=== PATIENT | female | born 1965 | race Caucasian/White ===

== ENCOUNTER 2017-05-21 13:27 | Emergency (ER) | payer OTHER ==
[2017-05-21 16:51] LABS: URINE BLOOD (Dip) POC Negative (NEGATIVE); URINE GLUCOSE (Dip) POC Negative (NEGATIVE); URINE KETONES (Dip) POC Negative (NEGATIVE); URINE LEUKOCYTE EST (Dip) POC Negative (NEGATIVE); URINE NITRITE (Dip) POC Negative (NEGATIVE); URINE TOTAL PROTEIN POC Negative (NEGATIVE)
[2017-05-21 16:51] LABS: URINE PH (Dip) POC 5.5 (5.0-8.5)
[2017-05-21 17:15] LABS: ADD MAN DIFF? NO
[2017-05-21 17:17] LABS: ABNORMAL IP MESSAGE 1; BASOPHILS % 0.4 % (0.0-2.0); EOSINOPHILS # 0.3 10^3/ul (0.0-0.5); EOSINOPHILS % 4.4 % (0.0-7.0); HEMATOCRIT 30.8 % (37.0-47.0); HEMOGLOBIN 8.9 g/dl (12.0-16.0); LYMPHOCYTES # 1.6 10^3/ul (0.8-2.9); LYMPHOCYTES % 21.8 % (15.0-51.0); MEAN CORPUSCULAR HEMOGLOBIN 21.5 pg (29.0-33.0); MEAN CORPUSCULAR HGB CONC 28.9 g/dl (32.0-37.0); MEAN CORPUSCULAR VOLUME 74.6 fl (82.0-101.0); MEAN PLATELET VOLUME 9.4 fl (7.4-10.4); MONOCYTE # 0.7 10^3/ul (0.3-0.9); MONOCYTES % 9.3 % (0.0-11.0); NEUTROPHIL # 4.6 10^3/ul (1.6-7.5); NEUTROPHILS % 63.8 % (39.0-77.0); PLATELET COUNT 191 10^3/UL (140-415); RED BLOOD COUNT 4.13 10^6/ul (4.20-5.40); RED CELL DISTRIBUTION WIDTH 18.4 % (11.5-14.5)
[2017-05-21 17:17] LABS: WHITE BLOOD COUNT 7.2 10^3/ul (4.8-10.8)
[2017-05-21 17:28] LABS: POSITIVE DIFF @See below
[2017-05-21 17:41] LABS: ALANINE AMINOTRANSFERASE 39 IU/L (13-69); ALBUMIN 3.8 g/dl (3.3-4.9); ALBUMIN/GLOBULIN RATIO 1.02; ALKALINE PHOSPHATASE 132 IU/L (42-121); ANION GAP 13 (8-16); ASPARTATE AMINO TRANSFERASE 31 IU/L (15-46); BILIRUBIN,INDIRECT 0.2 mg/dl (0-1.1); BILIRUBIN,TOTAL 0.2 mg/dl (0.2-1.3); BLOOD UREA NITROGEN 16 mg/dl (7-20); CALCIUM 9.2 mg/dl (8.4-10.2); CARBON DIOXIDE 31 mmol/L (21-31); CHLORIDE 103 mmol/L (97-110); CREATININE 0.64 mg/dl (0.44-1.00); GLUCOSE 97 mg/dl (70-220); LIPASE 196 U/L (23-300); POTASSIUM 3.7 mmol/L (3.5-5.1); SODIUM 143 mmol/L (135-144); TOTAL PROTEIN 7.5 g/dl (6.1-8.1)
[2017-05-21 17:51] LABS: INR 0.93; PROTIME 12.5 Sec (11.9-14.9)
[2017-05-21 17:52] LABS: PARTIAL THROMBOPLASTIN TIME 32.2 Sec (25.0-35.0)
[2017-05-21] MEDS: CLINDAMYCIN 300 MG CAP PO (19:22)
== END 2017-05-21 21:20 | disposition home or self-care (01) ==
LOC: E/R 13:27
DX: L03.115 Cellulitis of right lower limb (principal); D64.9 Anemia, unspecified; J45.909 Unspecified asthma, uncomplicated; Z96.641 Presence of right artificial hip joint
CPT/HCPCS: 36415; 80053; 81003; 83690; 85025; 85610; 85730; 93970; 99284-25

== ENCOUNTER 2017-09-02 17:51 | Inpatient (IN) | payer OTHER ==
[2017-09-02] MEDS ORDERED: ALBUTEROL/IPRATROPIUM (NEB) 3 ML AMP (20:11)
[2017-09-02] MEDS ORDERED: LEVALBUTEROL (NEB) 0.63 MG/3 ML AMP (20:14)
[2017-09-02] MEDS: HEPARIN 5,000 UNIT/0.5 ML VIAL SC (22:58)
[2017-09-02] MEDS ORDERED: morphine 2 MG INJ IV (23:00)
[2017-09-02] MEDS ORDERED: VANCOMYCIN IV PER PHARMACY XX (23:00)
[2017-09-03] MEDS: VANCOMYCIN 2 GM in SOD CHLORIDE 0.9% 500 ML IVPB (00:55)
[2017-09-03] MEDS: DIPHENHYDRAMINE 25 MG CAP PO (03:04)
[2017-09-03] MEDS: HYDROCODONE/APAP (5/325) TAB PO (03:06)
[2017-09-03] MEDS: IPRATROPIUM (NEB) 0.5 MG/2.5 ML AMP HHN (03:20)
[2017-09-03] MEDS: LEVALBUTEROL (NEB) 0.63 MG/3 ML AMP HHN (03:20)
[2017-09-03] MEDS ORDERED: NON-FORMULARY/PATIENT OWN MED (Salmeterol Xinaf-Fluticasone* (Advair HFA*) 2 INH) IH (09:00)
[2017-09-03] MEDS ORDERED: VANCOMYCIN IV PER PHARMACY XX (09:00)
[2017-09-03 09:17] LABS: ADD MAN DIFF? NO
[2017-09-03 09:22] LABS: ABNORMAL IP MESSAGE 1; BASOPHILS % 0.7 % (0.0-2.0); EOSINOPHILS # 0.3 10^3/ul (0.0-0.5); EOSINOPHILS % 5.5 % (0.0-7.0); HEMATOCRIT 26.2 % (37.0-47.0); LYMPHOCYTES # 1.2 10^3/ul (0.8-2.9); LYMPHOCYTES % 21.5 % (15.0-51.0); MEAN CORPUSCULAR HEMOGLOBIN 19.4 pg (29.0-33.0); MEAN CORPUSCULAR HGB CONC 26.7 g/dl (32.0-37.0); MEAN CORPUSCULAR VOLUME 72.6 fl (82.0-101.0); MEAN PLATELET VOLUME 8.9 fl (7.4-10.4); MONOCYTE # 0.5 10^3/ul (0.3-0.9); MONOCYTES % 9.2 % (0.0-11.0); NEUTROPHIL # 3.6 10^3/ul (1.6-7.5); NEUTROPHILS % 62.4 % (39.0-77.0); PLATELET COUNT 253 10^3/UL (140-415); RED BLOOD COUNT 3.61 10^6/ul (4.20-5.40)
[2017-09-03 09:22] LABS: WHITE BLOOD COUNT 5.8 10^3/ul (4.8-10.8)
[2017-09-03 09:51] LABS: ALANINE AMINOTRANSFERASE 25 IU/L (13-69); ALBUMIN 2.9 g/dl (3.3-4.9); ALBUMIN/GLOBULIN RATIO 0.85; ALKALINE PHOSPHATASE 84 IU/L (42-121); ANION GAP 7 (8-16); ASPARTATE AMINO TRANSFERASE 18 IU/L (15-46); BILIRUBIN,INDIRECT 0.5 mg/dl (0-1.1); BILIRUBIN,TOTAL 0.5 mg/dl (0.2-1.3); BLOOD UREA NITROGEN 10 mg/dl (7-20); CALCIUM 8.3 mg/dl (8.4-10.2); CARBON DIOXIDE 32 mmol/L (21-31); CHLORIDE 104 mmol/L (97-110); CREATININE 0.58 mg/dl (0.44-1.00); GLUCOSE 113 mg/dl (70-220); MAGNESIUM 2.1 mg/dl (1.7-2.5); PHOSPHORUS 4.4 mg/dl (2.5-4.9); POTASSIUM 3.7 mmol/L (3.5-5.1); SODIUM 139 mmol/L (135-144); TOTAL PROTEIN 6.3 g/dl (6.1-8.1)
[2017-09-03] MEDS: RANITIDINE 150 MG TAB PO ×2 (09:56→20:48)
[2017-09-03] MEDS: FUROSEMIDE 40 MG TAB PO (09:56)
[2017-09-03] MEDS: POTASSIUM CHLORIDE (SR) 20 MEQ TAB PO (09:56)
[2017-09-03] MEDS: CEFEPIME 1GM/50 ML (PMX) 50 ML IVPB ×2 (09:56→20:48)
[2017-09-03] MEDS: GABAPENTIN 300 MG CAP PO ×3 (09:56→20:48)
[2017-09-03] MEDS: HEPARIN 5,000 UNIT/0.5 ML VIAL SC ×2 (09:58→20:49)
[2017-09-03] MEDS: MELOXICAM 15 MG TAB PO (10:17)
[2017-09-03] MEDS: TOLTERODINE (SR) 2 MG CAP PO (11:18)
[2017-09-03] MEDS: ALBUTEROL HFA 8 GM INHALER INH ×2 (11:18→14:00)
[2017-09-03] MEDS: VANCOMYCIN 1.5 GM in SOD CHLORIDE 0.9% 250 ML IVPB (12:39)
[2017-09-03] MEDS ORDERED: IBUPROFEN 800 MG TAB PO (14:00)
[2017-09-03 15:44] LABS: IRON 23 ug/dl (35-150)
[2017-09-03 15:53] LABS: % IRON SATURATION 6 % SAT (22-52); TOTAL IRON BINDING CAPACITY 374 ug/dl (241-421)
[2017-09-03] MEDS: SOD FERRIC GLUC COMPLX 125 MG in SOD CHLORIDE 0.9% 100 ML IVPB (17:09)
[2017-09-03 17:29] LABS: HEMATOCRIT 25.7 % (37.0-47.0)
[2017-09-03 17:39] LABS: HEMOGLOBIN 6.9 g/dl (12.0-16.0)
[2017-09-03] MEDS: ARFORMOTEROL TARTRATE 15MCG/2 ML AMP INH (19:09)
[2017-09-03] MEDS: BUDESONIDE (NEB) 0.5MG/2ML AMP INH (19:10)
[2017-09-03 22:47] LABS: IMMEDIATE SPIN CROSSMATCH 1 3
[2017-09-04] MEDS: VANCOMYCIN 1.5 GM in SOD CHLORIDE 0.9% 250 ML IVPB ×2 (03:18→13:02)
[2017-09-04] MEDS: BUDESONIDE (NEB) 0.5MG/2ML AMP INH ×2 (08:00→20:01)
[2017-09-04] MEDS: ARFORMOTEROL TARTRATE 15MCG/2 ML AMP INH ×2 (08:37→19:58)
[2017-09-04] MEDS: HEPARIN 5,000 UNIT/0.5 ML VIAL SC ×3 (09:00→22:28)
[2017-09-04 09:31] LABS: ADD MAN DIFF? NO
[2017-09-04 09:36] LABS: ABNORMAL IP MESSAGE 1; BASOPHILS % 0.6 % (0.0-2.0); EOSINOPHILS # 0.4 10^3/ul (0.0-0.5); EOSINOPHILS % 5.8 % (0.0-7.0); HEMATOCRIT 28.2 % (37.0-47.0); HEMOGLOBIN 7.7 g/dl (12.0-16.0); LYMPHOCYTES # 1.4 10^3/ul (0.8-2.9); LYMPHOCYTES % 21.5 % (15.0-51.0); MEAN CORPUSCULAR HEMOGLOBIN 19.9 pg (29.0-33.0); MEAN CORPUSCULAR HGB CONC 27.3 g/dl (32.0-37.0); MEAN CORPUSCULAR VOLUME 72.9 fl (82.0-101.0); MEAN PLATELET VOLUME 9.3 fl (7.4-10.4); MONOCYTE # 0.5 10^3/ul (0.3-0.9); MONOCYTES % 6.9 % (0.0-11.0); NEUTROPHIL # 4.2 10^3/ul (1.6-7.5); NEUTROPHILS % 64.4 % (39.0-77.0); PLATELET COUNT 271 10^3/UL (140-415); RED BLOOD COUNT 3.87 10^6/ul (4.20-5.40); RED CELL DISTRIBUTION WIDTH 20.9 % (11.5-14.5)
[2017-09-04 09:36] LABS: WHITE BLOOD COUNT 6.6 10^3/ul (4.8-10.8)
[2017-09-04] MEDS: CEFEPIME 1GM/50 ML (PMX) 50 ML IVPB ×2 (09:42→22:26)
[2017-09-04] MEDS: ALBUTEROL HFA 8 GM INHALER INH ×3 (09:43→20:00)
[2017-09-04] MEDS: POTASSIUM CHLORIDE (SR) 20 MEQ TAB PO (09:43)
[2017-09-04] MEDS: RANITIDINE 150 MG TAB PO ×2 (09:43→22:29)
[2017-09-04] MEDS: GABAPENTIN 300 MG CAP PO ×3 (09:43→22:29)
[2017-09-04] MEDS: TOLTERODINE (SR) 2 MG CAP PO (09:43)
[2017-09-04] MEDS: MELOXICAM 15 MG TAB PO (09:43)
[2017-09-04] MEDS: FUROSEMIDE 40 MG TAB PO (09:43)
[2017-09-04 09:56] LABS: POSITIVE DIFF @See below
[2017-09-04 10:05] LABS: ANION GAP 9 (8-16); BLOOD UREA NITROGEN 10 mg/dl (7-20); CALCIUM 8.4 mg/dl (8.4-10.2); CARBON DIOXIDE 31 mmol/L (21-31); CHLORIDE 104 mmol/L (97-110); CREATININE 0.65 mg/dl (0.44-1.00); GLUCOSE 130 mg/dl (70-220); POTASSIUM 3.6 mmol/L (3.5-5.1); SODIUM 140 mmol/L (135-144)
[2017-09-04 10:23] LABS: T3 UPTAKE 34.4 % (23.5-40.5)
[2017-09-04 10:27] LABS: FREE THYROXINE INDEX (Calc) 2.03 ug/ml (0.65-3.89); T4 (THYROXINE) 5.9 ug/dl (5.5-11.0)
[2017-09-04 10:31] LABS: INR 0.97
[2017-09-04 10:32] LABS: PARTIAL THROMBOPLASTIN TIME 37.5 Sec (25.0-35.0)
[2017-09-04 12:21] LABS: VANCOMYCIN,TROUGH < 5.0 ug/ml (10.0-20.0)
[2017-09-04] MEDS: SOD FERRIC GLUC COMPLX 125 MG in SOD CHLORIDE 0.9% 100 ML IVPB (18:06)
[2017-09-04] MEDS: ALBUTEROL/IPRATROPIUM (NEB) 3 ML AMP HHN (20:11)
[2017-09-04] MEDS ORDERED: morphine LIQ (10 MG/5 ML) CUP PO (21:30)
[2017-09-04] MEDS: HYDROCODONE/APAP (5/325) TAB PO (22:29)
[2017-09-05] MEDS: ALBUTEROL/IPRATROPIUM (NEB) 3 ML AMP HHN ×2 (01:18→06:14)
[2017-09-05] MEDS: VANCOMYCIN 1.75 GM in SOD CHLORIDE 0.9% 500 ML IVPB ×2 (01:43→12:57)
[2017-09-05] MEDS: ALBUTEROL HFA 8 GM INHALER INH ×4 (01:44→19:51)
[2017-09-05 05:59] LABS: ADD MAN DIFF? NO
[2017-09-05 06:09] LABS: ABNORMAL IP MESSAGE 1; BASOPHIL # 0.1 10^3/ul (0.0-0.1); EOSINOPHILS # 0.5 10^3/ul (0.0-0.5); EOSINOPHILS % 7.5 % (0.0-7.0); HEMATOCRIT 27.4 % (37.0-47.0); HEMOGLOBIN 7.3 g/dl (12.0-16.0); LYMPHOCYTES # 1.6 10^3/ul (0.8-2.9); LYMPHOCYTES % 25.6 % (15.0-51.0); MEAN CORPUSCULAR HEMOGLOBIN 19.6 pg (29.0-33.0); MEAN CORPUSCULAR HGB CONC 26.6 g/dl (32.0-37.0); MEAN CORPUSCULAR VOLUME 73.7 fl (82.0-101.0); MEAN PLATELET VOLUME 9.4 fl (7.4-10.4); MONOCYTE # 0.5 10^3/ul (0.3-0.9); MONOCYTES % 8.4 % (0.0-11.0); NEUTROPHIL # 3.5 10^3/ul (1.6-7.5); NEUTROPHILS % 56.5 % (39.0-77.0); PLATELET COUNT 244 10^3/UL (140-415); RED BLOOD COUNT 3.72 10^6/ul (4.20-5.40)
[2017-09-05 06:09] LABS: WHITE BLOOD COUNT 6.2 10^3/ul (4.8-10.8)
[2017-09-05 06:36] LABS: ANION GAP 9 (8-16); BLOOD UREA NITROGEN 10 mg/dl (7-20); CALCIUM 8.4 mg/dl (8.4-10.2); CARBON DIOXIDE 31 mmol/L (21-31); CHLORIDE 105 mmol/L (97-110); CREATININE 0.56 mg/dl (0.44-1.00); GLUCOSE 114 mg/dl (70-220); POTASSIUM 3.5 mmol/L (3.5-5.1); SODIUM 141 mmol/L (135-144)
[2017-09-05 06:50] LABS: POSITIVE DIFF @See below
[2017-09-05] MEDS: HYDROCODONE/APAP (5/325) TAB PO (07:01)
[2017-09-05] MEDS: BUDESONIDE (NEB) 0.5MG/2ML AMP INH ×2 (08:00→19:23)
[2017-09-05] MEDS: ARFORMOTEROL TARTRATE 15MCG/2 ML AMP INH ×2 (09:00→19:23)
[2017-09-05] MEDS: POTASSIUM CHLORIDE (SR) 20 MEQ TAB PO (09:48)
[2017-09-05] MEDS: CEFEPIME 1GM/50 ML (PMX) 50 ML IVPB ×2 (09:48→21:07)
[2017-09-05] MEDS: GABAPENTIN 300 MG CAP PO ×3 (09:48→21:08)
[2017-09-05] MEDS: MELOXICAM 15 MG TAB PO (09:49)
[2017-09-05] MEDS: RANITIDINE 150 MG TAB PO ×2 (09:49→21:08)
[2017-09-05] MEDS: TOLTERODINE (SR) 2 MG CAP PO (09:49)
[2017-09-05] MEDS: FUROSEMIDE 40 MG TAB PO (09:49)
[2017-09-05] MEDS: LEVALBUTEROL (NEB) 0.63 MG/3 ML AMP HHN (17:19)
[2017-09-05] MEDS: SOD FERRIC GLUC COMPLX 125 MG in SOD CHLORIDE 0.9% 100 ML IVPB (17:30)
[2017-09-05] MEDS: MAGNESIUM CITRATE 300 ML BTL PO (19:49)
[2017-09-05] MEDS: POLYETHYLENE GLYCOL 3350 119 GM POWDER PO (19:49)
[2017-09-05] MEDS: BISACODYL (EC) 5 MG TAB PO (19:50)
[2017-09-06] MEDS: VANCOMYCIN 1.75 GM in SOD CHLORIDE 0.9% 500 ML IVPB ×2 (00:32→13:42)
[2017-09-06] MEDS: HYDROCODONE/APAP (5/325) TAB PO ×3 (00:32→18:21)
[2017-09-06] MEDS: ALBUTEROL HFA 8 GM INHALER INH ×4 (02:49→20:00)
[2017-09-06] MEDS: ALBUTEROL/IPRATROPIUM (NEB) 3 ML AMP HHN (05:26)
[2017-09-06] MEDS: POLYETHYLENE GLYCOL 3350 119 GM POWDER PO (05:38)
[2017-09-06] MEDS: MELOXICAM 15 MG TAB PO (08:35)
[2017-09-06] MEDS: TOLTERODINE (SR) 2 MG CAP PO (08:35)
[2017-09-06] MEDS: FUROSEMIDE 40 MG TAB PO (08:35)
[2017-09-06] MEDS: RANITIDINE 150 MG TAB PO ×2 (08:36→21:38)
[2017-09-06] MEDS: GABAPENTIN 300 MG CAP PO ×3 (08:36→21:38)
[2017-09-06] MEDS: BISACODYL (EC) 5 MG TAB PO (08:36)
[2017-09-06] MEDS: POTASSIUM CHLORIDE (SR) 20 MEQ TAB PO (08:36)
[2017-09-06] MEDS: ARFORMOTEROL TARTRATE 15MCG/2 ML AMP INH ×2 (08:44→21:37)
[2017-09-06] MEDS: BUDESONIDE (NEB) 0.5MG/2ML AMP INH ×2 (08:52→21:46)
[2017-09-06] MEDS: CEFEPIME 1GM/50 ML (PMX) 50 ML IVPB ×2 (10:16→21:38)
[2017-09-06 12:54] LABS: ADD MAN DIFF? NO
[2017-09-06 13:05] LABS: ABNORMAL IP MESSAGE 1; BASOPHILS % 0.5 % (0.0-2.0); EOSINOPHILS # 0.5 10^3/ul (0.0-0.5); EOSINOPHILS % 8.8 % (0.0-7.0); HEMOGLOBIN 8.1 g/dl (12.0-16.0); LYMPHOCYTES # 1.2 10^3/ul (0.8-2.9); MEAN CORPUSCULAR HEMOGLOBIN 20.1 pg (29.0-33.0); MEAN CORPUSCULAR VOLUME 74.6 fl (82.0-101.0); MEAN PLATELET VOLUME 9.7 fl (7.4-10.4); MONOCYTE # 0.5 10^3/ul (0.3-0.9); NEUTROPHIL # 3.6 10^3/ul (1.6-7.5); NEUTROPHILS % 61.9 % (39.0-77.0); NUCLEATED RED BLOOD CELLS% 0.3 /100WBC (0.0-0.0); PLATELET COUNT 264 10^3/UL (140-415); RED BLOOD COUNT 4.02 10^6/ul (4.20-5.40); RED CELL DISTRIBUTION WIDTH 21.5 % (11.5-14.5)
[2017-09-06 13:05] LABS: WHITE BLOOD COUNT 5.9 10^3/ul (4.8-10.8)
[2017-09-06 13:07] LABS: POSITIVE DIFF @See below
[2017-09-06 13:16] LABS: ANION GAP 10 (8-16); BLOOD UREA NITROGEN 7 mg/dl (7-20); CALCIUM 8.5 mg/dl (8.4-10.2); CARBON DIOXIDE 34 mmol/L (21-31); CHLORIDE 99 mmol/L (97-110); CREATININE 0.57 mg/dl (0.44-1.00); GLUCOSE 89 mg/dl (70-220); POTASSIUM 4.4 mmol/L (3.5-5.1); SODIUM 139 mmol/L (135-144)
[2017-09-06 13:18] LABS: VANCOMYCIN,TROUGH 11.9 ug/ml (10.0-20.0)
[2017-09-06] MEDS: SOD FERRIC GLUC COMPLX 125 MG in SOD CHLORIDE 0.9% 100 ML IVPB (17:20)
[2017-09-06] MEDS: DIPHENHYDRAMINE 25 MG CAP PO (18:21)
[2017-09-06] MEDS: ONDANSETRON 4 MG INJ IV (18:27)
[2017-09-07] MEDS: VANCOMYCIN 1.75 GM in SOD CHLORIDE 0.9% 500 ML IVPB ×2 (00:37→13:14)
[2017-09-07] MEDS: ALBUTEROL HFA 8 GM INHALER INH ×4 (02:52→21:25)
[2017-09-07] MEDS: DIPHENHYDRAMINE 25 MG CAP PO ×3 (02:52→23:36)
[2017-09-07] MEDS: TOLTERODINE (SR) 2 MG CAP PO (09:14)
[2017-09-07] MEDS: RANITIDINE 150 MG TAB PO (09:14)
[2017-09-07] MEDS: MELOXICAM 15 MG TAB PO (09:14)
[2017-09-07] MEDS: CEFEPIME 1GM/50 ML (PMX) 50 ML IVPB ×2 (09:14→21:25)
[2017-09-07] MEDS: FUROSEMIDE 40 MG TAB PO (09:14)
[2017-09-07] MEDS: POTASSIUM CHLORIDE (SR) 20 MEQ TAB PO (09:14)
[2017-09-07] MEDS: GABAPENTIN 300 MG CAP PO ×3 (09:14→21:25)
[2017-09-07] MEDS: BUDESONIDE (NEB) 0.5MG/2ML AMP INH ×2 (10:20→20:22)
[2017-09-07] MEDS: ARFORMOTEROL TARTRATE 15MCG/2 ML AMP INH ×2 (10:20→20:00)
[2017-09-07 10:37] LABS: ADD MAN DIFF? NO
[2017-09-07 10:40] LABS: WHITE BLOOD COUNT 6.6 10^3/ul (4.8-10.8)
[2017-09-07 10:40] LABS: ABNORMAL IP MESSAGE 1; BASOPHILS % 0.5 % (0.0-2.0); EOSINOPHILS # 0.6 10^3/ul (0.0-0.5); EOSINOPHILS % 8.3 % (0.0-7.0); HEMATOCRIT 29.1 % (37.0-47.0); HEMOGLOBIN 7.8 g/dl (12.0-16.0); LYMPHOCYTES # 1.2 10^3/ul (0.8-2.9); LYMPHOCYTES % 17.4 % (15.0-51.0); MEAN CORPUSCULAR HEMOGLOBIN 20.3 pg (29.0-33.0); MEAN CORPUSCULAR HGB CONC 26.8 g/dl (32.0-37.0); MEAN CORPUSCULAR VOLUME 75.6 fl (82.0-101.0); MEAN PLATELET VOLUME 9.4 fl (7.4-10.4); MONOCYTE # 0.4 10^3/ul (0.3-0.9); MONOCYTES % 6.1 % (0.0-11.0); NEUTROPHIL # 4.4 10^3/ul (1.6-7.5); NEUTROPHILS % 66.6 % (39.0-77.0); NUCLEATED RED BLOOD CELLS% 0.5 /100WBC (0.0-0.0); PLATELET COUNT 232 10^3/UL (140-415); RED BLOOD COUNT 3.85 10^6/ul (4.20-5.40); RED CELL DISTRIBUTION WIDTH 22.5 % (11.5-14.5)
[2017-09-07 10:43] LABS: POSITIVE DIFF @See below
[2017-09-07] MEDS: HYDROCODONE/APAP (5/325) TAB PO (10:56)
[2017-09-07 11:06] LABS: ANION GAP 13 (8-16); BLOOD UREA NITROGEN 10 mg/dl (7-20); CALCIUM 8.6 mg/dl (8.4-10.2); CARBON DIOXIDE 31 mmol/L (21-31); CHLORIDE 99 mmol/L (97-110); CREATININE 0.63 mg/dl (0.44-1.00); GLUCOSE 150 mg/dl (70-220); POTASSIUM 4.3 mmol/L (3.5-5.1); SODIUM 139 mmol/L (135-144)
[2017-09-07] MEDS: SUCRALFATE (100 MG/ML) 10ML CUP PO ×3 (13:15→21:25)
[2017-09-07] MEDS: SOD FERRIC GLUC COMPLX 125 MG in SOD CHLORIDE 0.9% 100 ML IVPB (17:53)
[2017-09-07] MEDS: PANTOPRAZOLE (EC) 40 MG TAB PO (17:53)
[2017-09-08] MEDS: VANCOMYCIN 1.75 GM in SOD CHLORIDE 0.9% 500 ML IVPB ×2 (01:09→13:16)
[2017-09-08] MEDS: ALBUTEROL HFA 8 GM INHALER INH ×4 (01:10→20:10)
[2017-09-08] MEDS: ALBUTEROL/IPRATROPIUM (NEB) 3 ML AMP HHN (05:13)
[2017-09-08] MEDS: PANTOPRAZOLE (EC) 40 MG TAB PO ×2 (05:48→17:26)
[2017-09-08] MEDS: ARFORMOTEROL TARTRATE 15MCG/2 ML AMP INH (09:09)
[2017-09-08] MEDS: BUDESONIDE (NEB) 0.5MG/2ML AMP INH (09:12)
[2017-09-08] MEDS: GABAPENTIN 300 MG CAP PO ×3 (09:38→20:10)
[2017-09-08] MEDS: TOLTERODINE (SR) 2 MG CAP PO (09:38)
[2017-09-08] MEDS: CEFEPIME 1GM/50 ML (PMX) 50 ML IVPB ×2 (09:38→20:09)
[2017-09-08] MEDS: POTASSIUM CHLORIDE (SR) 20 MEQ TAB PO (09:38)
[2017-09-08] MEDS: SUCRALFATE (100 MG/ML) 10ML CUP PO ×4 (09:39→20:10)
[2017-09-08] MEDS: FUROSEMIDE 40 MG TAB PO (09:39)
[2017-09-08] MEDS: MELOXICAM 15 MG TAB PO (09:39)
[2017-09-08 09:54] LABS: ADD MAN DIFF? NO
[2017-09-08 09:59] LABS: ABNORMAL IP MESSAGE 1; BASOPHILS % 0.7 % (0.0-2.0); EOSINOPHILS # 0.4 10^3/ul (0.0-0.5); EOSINOPHILS % 7.2 % (0.0-7.0); HEMATOCRIT 30.3 % (37.0-47.0); HEMOGLOBIN 8.2 g/dl (12.0-16.0); LYMPHOCYTES # 1.2 10^3/ul (0.8-2.9); LYMPHOCYTES % 20.7 % (15.0-51.0); MEAN CORPUSCULAR HEMOGLOBIN 20.3 pg (29.0-33.0); MEAN CORPUSCULAR HGB CONC 27.1 g/dl (32.0-37.0); MEAN CORPUSCULAR VOLUME 75.2 fl (82.0-101.0); MEAN PLATELET VOLUME 9.2 fl (7.4-10.4); MONOCYTE # 0.5 10^3/ul (0.3-0.9); MONOCYTES % 7.6 % (0.0-11.0); NEUTROPHIL # 3.7 10^3/ul (1.6-7.5); NEUTROPHILS % 62.3 % (39.0-77.0); NUCLEATED RED BLOOD CELLS% 0.3 /100WBC (0.0-0.0); PLATELET COUNT 213 10^3/UL (140-415); RED BLOOD COUNT 4.03 10^6/ul (4.20-5.40); RED CELL DISTRIBUTION WIDTH 22.9 % (11.5-14.5)
[2017-09-08 10:08] LABS: POSITIVE DIFF @See below
[2017-09-08 10:27] LABS: ANION GAP 13 (8-16); BLOOD UREA NITROGEN 10 mg/dl (7-20); CALCIUM 8.7 mg/dl (8.4-10.2); CARBON DIOXIDE 32 mmol/L (21-31); CHLORIDE 98 mmol/L (97-110); CREATININE 0.67 mg/dl (0.44-1.00); GLUCOSE 120 mg/dl (70-220); POTASSIUM 4.5 mmol/L (3.5-5.1); SODIUM 138 mmol/L (135-144)
[2017-09-08] MEDS ORDERED: SALMETEROL/FLUTICASONE 250/50 INHA INH (11:00)
[2017-09-08] MEDS: FLUTICASONE/VILANTEROL 100-25 INH ×2 (13:16→13:19)
[2017-09-08] MEDS: DIPHENHYDRAMINE 25 MG CAP PO (16:35)
[2017-09-09] MEDS: ALBUTEROL/IPRATROPIUM (NEB) 3 ML AMP HHN ×2 (00:17→19:31)
[2017-09-09] MEDS: DIPHENHYDRAMINE 25 MG CAP PO ×3 (00:20→21:04)
[2017-09-09] MEDS: VANCOMYCIN 1.75 GM in SOD CHLORIDE 0.9% 500 ML IVPB ×2 (00:21→12:17)
[2017-09-09] MEDS: HYDROCODONE/APAP (5/325) TAB PO ×2 (01:39→12:17)
[2017-09-09] MEDS: ALBUTEROL HFA 8 GM INHALER INH ×4 (02:20→20:51)
[2017-09-09] MEDS: PANTOPRAZOLE (EC) 40 MG TAB PO ×2 (05:13→17:09)
[2017-09-09] MEDS: FUROSEMIDE 40 MG TAB PO (08:47)
[2017-09-09] MEDS: POTASSIUM CHLORIDE (SR) 20 MEQ TAB PO (08:47)
[2017-09-09] MEDS: GABAPENTIN 300 MG CAP PO ×3 (08:47→20:50)
[2017-09-09] MEDS: TOLTERODINE (SR) 2 MG CAP PO (08:47)
[2017-09-09] MEDS: SUCRALFATE (100 MG/ML) 10ML CUP PO ×4 (08:47→20:50)
[2017-09-09] MEDS: MELOXICAM 15 MG TAB PO (08:47)
[2017-09-09] MEDS: FLUTICASONE/VILANTEROL 100-25 INH (08:48)
[2017-09-09] MEDS: CEFEPIME 1GM/50 ML (PMX) 50 ML IVPB ×2 (08:48→20:51)
[2017-09-09 09:15] LABS: ADD MAN DIFF? NO
[2017-09-09 09:18] LABS: WHITE BLOOD COUNT 6.7 10^3/ul (4.8-10.8)
[2017-09-09 09:18] LABS: ABNORMAL IP MESSAGE 1; BASOPHIL # 0.1 10^3/ul (0.0-0.1); BASOPHILS % 0.7 % (0.0-2.0); EOSINOPHILS # 0.4 10^3/ul (0.0-0.5); EOSINOPHILS % 6.6 % (0.0-7.0); HEMATOCRIT 31.6 % (37.0-47.0); HEMOGLOBIN 8.6 g/dl (12.0-16.0); LYMPHOCYTES # 1.5 10^3/ul (0.8-2.9); LYMPHOCYTES % 21.8 % (15.0-51.0); MEAN CORPUSCULAR HEMOGLOBIN 20.6 pg (29.0-33.0); MEAN CORPUSCULAR HGB CONC 27.2 g/dl (32.0-37.0); MEAN CORPUSCULAR VOLUME 75.8 fl (82.0-101.0); MEAN PLATELET VOLUME 9.3 fl (7.4-10.4); MONOCYTE # 0.4 10^3/ul (0.3-0.9); MONOCYTES % 5.8 % (0.0-11.0); NEUTROPHIL # 4.3 10^3/ul (1.6-7.5); NEUTROPHILS % 63.9 % (39.0-77.0); NUCLEATED RED BLOOD CELLS% 0.3 /100WBC (0.0-0.0); PLATELET COUNT 191 10^3/UL (140-415); RED BLOOD COUNT 4.17 10^6/ul (4.20-5.40); RED CELL DISTRIBUTION WIDTH 24.1 % (11.5-14.5)
[2017-09-09 09:23] LABS: POSITIVE DIFF @See below
[2017-09-09 09:43] LABS: ANION GAP 13 (8-16); BLOOD UREA NITROGEN 13 mg/dl (7-20); CALCIUM 8.6 mg/dl (8.4-10.2); CARBON DIOXIDE 28 mmol/L (21-31); CHLORIDE 103 mmol/L (97-110); CREATININE 0.65 mg/dl (0.44-1.00); GLUCOSE 142 mg/dl (70-220); POTASSIUM 4.3 mmol/L (3.5-5.1); SODIUM 140 mmol/L (135-144)
[2017-09-10 01:30] LABS: VANCOMYCIN,TROUGH 13.1 ug/ml (10.0-20.0)
[2017-09-10] MEDS: VANCOMYCIN 1.75 GM in SOD CHLORIDE 0.9% 500 ML IVPB ×2 (01:43→13:22)
[2017-09-10] MEDS: HYDROCODONE/APAP (5/325) TAB PO ×3 (01:55→17:26)
[2017-09-10] MEDS: ALBUTEROL HFA 8 GM INHALER INH ×4 (02:09→20:29)
[2017-09-10] MEDS: PANTOPRAZOLE (EC) 40 MG TAB PO ×2 (05:11→17:21)
[2017-09-10] MEDS: CEFEPIME 1GM/50 ML (PMX) 50 ML IVPB ×2 (09:45→21:07)
[2017-09-10] MEDS: FLUTICASONE/VILANTEROL 100-25 INH (09:45)
[2017-09-10] MEDS: GABAPENTIN 300 MG CAP PO ×3 (09:46→20:29)
[2017-09-10] MEDS: POTASSIUM CHLORIDE (SR) 20 MEQ TAB PO (09:46)
[2017-09-10] MEDS: SUCRALFATE (100 MG/ML) 10ML CUP PO ×4 (09:46→20:29)
[2017-09-10] MEDS: FUROSEMIDE 40 MG TAB PO (09:46)
[2017-09-10] MEDS: TOLTERODINE (SR) 2 MG CAP PO (09:46)
[2017-09-10] MEDS: MELOXICAM 15 MG TAB PO (09:46)
[2017-09-10 10:31] LABS: ADD MAN DIFF? NO
[2017-09-10 10:33] LABS: ABNORMAL IP MESSAGE 1; BASOPHIL # 0.1 10^3/ul (0.0-0.1); BASOPHILS % 0.8 % (0.0-2.0); EOSINOPHILS # 0.4 10^3/ul (0.0-0.5); EOSINOPHILS % 5.8 % (0.0-7.0); HEMATOCRIT 33.2 % (37.0-47.0); HEMOGLOBIN 9.1 g/dl (12.0-16.0); LYMPHOCYTES # 1.5 10^3/ul (0.8-2.9); LYMPHOCYTES % 20.8 % (15.0-51.0); MEAN CORPUSCULAR HEMOGLOBIN 20.7 pg (29.0-33.0); MEAN CORPUSCULAR HGB CONC 27.4 g/dl (32.0-37.0); MEAN CORPUSCULAR VOLUME 75.6 fl (82.0-101.0); MEAN PLATELET VOLUME 9.4 fl (7.4-10.4); MONOCYTE # 0.4 10^3/ul (0.3-0.9); MONOCYTES % 5.9 % (0.0-11.0); NEUTROPHIL # 4.8 10^3/ul (1.6-7.5); NEUTROPHILS % 65.2 % (39.0-77.0); PLATELET COUNT 198 10^3/UL (140-415); RED BLOOD COUNT 4.39 10^6/ul (4.20-5.40); RED CELL DISTRIBUTION WIDTH 24.5 % (11.5-14.5)
[2017-09-10 10:33] LABS: WHITE BLOOD COUNT 7.4 10^3/ul (4.8-10.8)
[2017-09-10 11:26] LABS: ALANINE AMINOTRANSFERASE 27 IU/L (13-69); ALBUMIN 3.5 g/dl (3.3-4.9); ALBUMIN/GLOBULIN RATIO 1.02; ALKALINE PHOSPHATASE 118 IU/L (42-121); ANION GAP 16 (8-16); ASPARTATE AMINO TRANSFERASE 30 IU/L (15-46); BILIRUBIN,INDIRECT 0.4 mg/dl (0-1.1); BILIRUBIN,TOTAL 0.4 mg/dl (0.2-1.3); BLOOD UREA NITROGEN 15 mg/dl (7-20); CALCIUM 8.9 mg/dl (8.4-10.2); CARBON DIOXIDE 27 mmol/L (21-31); CHLORIDE 101 mmol/L (97-110); GLUCOSE 137 mg/dl (70-220); POTASSIUM 4.2 mmol/L (3.5-5.1); SODIUM 140 mmol/L (135-144); TOTAL PROTEIN 6.9 g/dl (6.1-8.1)
[2017-09-10 11:28] LABS: PHOSPHORUS 4.5 mg/dl (2.5-4.9)
[2017-09-10 11:28] LABS: CHOL/HDL RATIO 3.2 RATIO; CHOLESTEROL 134 mg/dl (100-200); HDL CHOLESTEROL 41 mg/dl (37-92); LDL CHOLESTEROL,CALCULATED 61 mg/dl; MAGNESIUM 1.9 mg/dl (1.7-2.5); TRIGLYCERIDES 158 mg/dl (0-149)
[2017-09-10 11:38] LABS: HEMOGLOBIN A1C 5.3 % (0-5.9)
[2017-09-10 11:48] LABS: IRON 33 ug/dl (35-150)
[2017-09-10 11:57] LABS: % IRON SATURATION 7 % SAT (22-52); TOTAL IRON BINDING CAPACITY 454 ug/dl (241-421)
[2017-09-10 13:23] LABS: FERRITIN 25.6 ng/ml (11.1-264.0)
[2017-09-11] MEDS: VANCOMYCIN 1.75 GM in SOD CHLORIDE 0.9% 500 ML IVPB ×2 (00:55→13:51)
[2017-09-11] MEDS: HYDROCODONE/APAP (5/325) TAB PO ×4 (01:07→17:55)
[2017-09-11] MEDS: ALBUTEROL HFA 8 GM INHALER INH ×3 (02:00→14:00)
[2017-09-11] MEDS: PANTOPRAZOLE (EC) 40 MG TAB PO ×2 (06:13→17:08)
[2017-09-11] MEDS: DIPHENHYDRAMINE 25 MG CAP PO ×2 (06:13→18:04)
[2017-09-11 06:42] LABS: ADD MAN DIFF? NO
[2017-09-11 06:51] LABS: WHITE BLOOD COUNT 7.5 10^3/ul (4.8-10.8)
[2017-09-11 06:51] LABS: ABNORMAL IP MESSAGE 1; BASOPHIL # 0.1 10^3/ul (0.0-0.1); BASOPHILS % 1.1 % (0.0-2.0); EOSINOPHILS # 0.5 10^3/ul (0.0-0.5); EOSINOPHILS % 6.8 % (0.0-7.0); HEMATOCRIT 32.6 % (37.0-47.0); LYMPHOCYTES # 1.9 10^3/ul (0.8-2.9); LYMPHOCYTES % 25.5 % (15.0-51.0); MEAN CORPUSCULAR HEMOGLOBIN 20.9 pg (29.0-33.0); MEAN CORPUSCULAR HGB CONC 27.6 g/dl (32.0-37.0); MEAN CORPUSCULAR VOLUME 75.8 fl (82.0-101.0); MEAN PLATELET VOLUME 9.9 fl (7.4-10.4); MONOCYTE # 0.5 10^3/ul (0.3-0.9); NEUTROPHIL # 4.4 10^3/ul (1.6-7.5); PLATELET COUNT 185 10^3/UL (140-415); RED CELL DISTRIBUTION WIDTH 25.5 % (11.5-14.5)
[2017-09-11 06:53] LABS: POSITIVE DIFF @See below
[2017-09-11 07:31] LABS: ANION GAP 13 (8-16); BLOOD UREA NITROGEN 18 mg/dl (7-20); CALCIUM 8.7 mg/dl (8.4-10.2); CARBON DIOXIDE 27 mmol/L (21-31); CHLORIDE 103 mmol/L (97-110); CREATININE 0.66 mg/dl (0.44-1.00); GLUCOSE 94 mg/dl (70-220); POTASSIUM 4.5 mmol/L (3.5-5.1); SODIUM 138 mmol/L (135-144)
[2017-09-11] MEDS: SUCRALFATE (100 MG/ML) 10ML CUP PO ×3 (09:29→17:08)
[2017-09-11] MEDS: CEFEPIME 1GM/50 ML (PMX) 50 ML IVPB (09:29)
[2017-09-11] MEDS: FLUTICASONE/VILANTEROL 100-25 INH (09:29)
[2017-09-11] MEDS: POTASSIUM CHLORIDE (SR) 20 MEQ TAB PO (09:30)
[2017-09-11] MEDS: TOLTERODINE (SR) 2 MG CAP PO (09:30)
[2017-09-11] MEDS: MELOXICAM 15 MG TAB PO (09:30)
[2017-09-11] MEDS: FUROSEMIDE 40 MG TAB PO (09:31)
[2017-09-11] MEDS: GABAPENTIN 300 MG CAP PO ×2 (09:31→13:51)
[2017-09-11] MEDS: PROPOFOL 60 ML (09:48)
[2017-09-11] MEDS: LIDOCAINE 2% (SDV) 5 ML INJ (09:49)
[2017-09-11] MEDS: ALBUTEROL/IPRATROPIUM (NEB) 3 ML AMP HHN (17:51)
== END 2017-09-11 20:30 | disposition home or self-care (01) | DRG 300 ==
LOC: PP2 17:51
PROC: 0DJD8ZZ Inspection of Lower Intestinal Tract, Via Natural or Artificial Opening Endoscopic (ICD-10-PCS; principal; 2017-09-06 15:00)
PROC: 0DB98ZX Excision of Duodenum, Via Natural or Artificial Opening Endoscopic, Diagnostic (ICD-10-PCS; 2017-09-06 15:00)
PROC: 0DB68ZX Excision of Stomach, Via Natural or Artificial Opening Endoscopic, Diagnostic (ICD-10-PCS; 2017-09-06 15:00)
PROC: 30233N1 Transfusion of Nonautologous Red Blood Cells into Peripheral Vein, Percutaneous Approach (ICD-10-PCS; 2017-09-06 19:15)
DX: I70.242 Atherosclerosis of native arteries of left leg with ulceration of calf (principal); L03.116 Cellulitis of left lower limb; Z68.41 Body mass index [BMI] 40.0-44.9, adult; L03.115 Cellulitis of right lower limb; I70.232 Atherosclerosis of native arteries of right leg with ulceration of calf; D50.9 Iron deficiency anemia, unspecified; E66.01 Morbid (severe) obesity due to excess calories; J44.9 Chronic obstructive pulmonary disease, unspecified; Z86.718 Personal history of other venous thrombosis and embolism; Z72.0 Tobacco use; L89.151 Pressure ulcer of sacral region, stage 1; L89.891 Pressure ulcer of other site, stage 1; Z59.0 Homelessness; B35.1 Tinea unguium; Z91.19 Patient's noncompliance with other medical treatment and regimen; Z79.1 Long term (current) use of non-steroidal anti-inflammatories (NSAID); K57.30 Diverticulosis of large intestine without perforation or abscess without bleeding; K64.8 Other hemorrhoids
CPT/HCPCS: 36430; 71045; 80048; 80053; 80061; 80202; 82728; 83036; 83540; 83735; 84100; 84436; 84479; 85014; 85018; 85025; 85610; 85730; 86850; 86900; 86901; 86920; 87081; 88305; 88312; 93306; 93922; 93970; 94640; 94664; 97116; 97161; 97530